=== PATIENT | female | born 1975 | race African-American/Black ===

== ENCOUNTER 2022-07-21 11:28 | Day surgery (SDC) | payer BC, OTHER ==
[2022-07-15 16:38] VITALS: BMI 28.5
[2022-07-21 13:06] VITALS: PULSE 76; TEMP 97.9
[2022-07-21 13:39] VITALS: BP 131/75; RESP 18
== END 2022-07-21 13:41 | disposition home or self-care (01) ==
LOC: FASU-ENDO 11:28
PROVIDERS: ATTEND Internal Medicine Gastroenterology
PROC: 0DB98ZX Excision of Duodenum, Via Natural or Artificial Opening Endoscopic, Diagnostic (ICD-10-PCS; 2022-07-21)
PROC: 0DB68ZX Excision of Stomach, Via Natural or Artificial Opening Endoscopic, Diagnostic (ICD-10-PCS; 2022-07-21)
PROC: 0DB48ZX Excision of Esophagogastric Junction, Via Natural or Artificial Opening Endoscopic, Diagnostic (ICD-10-PCS; 2022-07-21)
PROC: 0DJD8ZZ Inspection of Lower Intestinal Tract, Via Natural or Artificial Opening Endoscopic (ICD-10-PCS; principal; 2022-07-21 12:30)
DX: Z12.11 Encounter for screening for malignant neoplasm of colon (principal); K64.1 Second degree hemorrhoids; K31.7 Polyp of stomach and duodenum; K29.50 Unspecified chronic gastritis without bleeding; K20.90 Esophagitis, unspecified without bleeding
CPT/HCPCS: 84703; 88305-TC; 88342-TC